=== PATIENT | female | born 1960 | race Caucasian/White ===

== ENCOUNTER 2017-09-29 09:19 | Emergency (ER) | payer MEDICAID, SELFPAY ==
[2017-09-29 09:31] VITALS: BP 163/97; PULSE 68; RESP 19; TEMP 36.2; O2SAT 100; BMI 36.3
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
[2017-09-29 13:57] VITALS: BP 150/78; PULSE 70; RESP 14; TEMP 36.7; O2SAT 97
== END 2017-09-29 13:58 | disposition home or self-care (01) ==
PROVIDERS: Emergency Provider Nurse Practitioner Family
DX: Z76.0 Encounter for issue of repeat prescription (principal)
CPT/HCPCS: 99282